=== PATIENT | male | born 1980 | race Caucasian/White ===

== ENCOUNTER 2025-03-27 00:20 | Emergency (ER) | payer MEDICAID, SELFPAY ==
--- NOTE | 2025-03-27 01:50 | PC.NURSE ---
PT No answer from lobby as we attempted to take him to exam room
--- NOTE | 2025-03-27 01:55 | PC.NURSE ---
Pt no answer at [phone]- security states she had seen him walk out
--- NOTE | 2025-03-27 02:01 | PC.LAC ---
pt no answer, will assume pt eloped
== END 2025-03-27 02:04 | disposition left against medical advice (07) ==
LOC: SERX 02:08
PROVIDERS: Emergency Provider Emergency Medicine
DX: Z53.21 Procedure and treatment not carried out due to patient leaving prior to being seen by health care provider (principal)